=== PATIENT | female | born 1975 | race Caucasian/White ===

== ENCOUNTER 2024-10-25 07:54 | Day surgery (SDC) | payer OTHER ==
[~2024-10-25] VITALS: Ht 167.6 cm; Wt 114.5 kg
[~2024-10-25 07:54] MED LIST: LIDOCAINE/PF 2% 5 ML SYRINGE IVP ONE; OMEP-148 PO; PROPOFOL 1% 20 ML VIAL IVP ONE; SODIUM CHLORIDE 0.9% 1,000 ML ONE
[2024-10-25] MEDS: SODIUM CHLORIDE 0.9% 1,000 ML IV ONE (08:34)
== END 2024-10-25 11:15 | disposition home or self-care (01) ==
LOC: SURGERY 07:54
PROVIDERS: ATTEND Internal Medicine Gastroenterology
DX: R13.10 Dysphagia, unspecified (principal); K22.2 Esophageal obstruction; K44.9 Diaphragmatic hernia without obstruction or gangrene; E66.9 Obesity, unspecified; I10 Essential (primary) hypertension; Z68.41 Body mass index [BMI] 40.0-44.9, adult; Z79.899 Other long term (current) drug therapy; Z98.890 Other specified postprocedural states
CPT/HCPCS: 43249; 84703; J2704; J3490; J7030